=== PATIENT | female | born 1980 | race Two or more races ===

== ENCOUNTER 2020-10-17 13:36 | Emergency (ER) | payer MEDICAID, OTHER ==
[~2020-10-17] VITALS: Ht 165.1 cm; Wt 82.1 kg
[2020-10-17 16:29] VITALS: BP 134/98
== END 2020-10-17 18:01 | disposition home or self-care (01) ==
LOC: ER 13:36
DX: J03.90 Acute tonsillitis, unspecified (principal); E11.9 Type 2 diabetes mellitus without complications; Z88.0 Allergy status to penicillin; Z20.822 Contact with and (suspected) exposure to COVID-19; Z88.2 Allergy status to sulfonamides
CPT/HCPCS: 36415; 71045; 87426